=== PATIENT | female | born 1940 | race Caucasian/White ===

== ENCOUNTER 2022-12-31 15:49 | Outpatient (REF) | payer MEDICARE, SELFPAY ==
--- NOTE | ~2022-12-31 | XR_ITS ---
EXAMINATION: XR SHOULDER, LEFT CLINICAL INFORMATION: Left shoulder contusion. COMPARISON: None TECHNIQUE: AP external rotation, Grashey, scapular Y, and axillary views of the left shoulder. FINDINGS: Moderate calcification is seen overlying the rotator cuff distally subjacent to the lateral margin of the acromion. Moderate left acromioclavicular degenerative joint changes are seen. The left glenohumeral joint is unremarkable. There is no acute fracture or dislocation. The visualized left ribs are intact. The soft tissues are unremarkable. XR/XR shoulder LT min 2V IMPRESSION: 1. 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 Moderate left acromioclavicular degenerative joint changes. No acute fracture.
== END 2022-12-31 15:50 | disposition home or self-care (01) ==
LOC: HO.HMGCX 15:49
PROVIDERS: Visit Provider Internal Medicine
DX: S40.012A Contusion of left shoulder, initial encounter (principal); X58.XXXA Exposure to other specified factors, initial encounter; Y93.9 Activity, unspecified; Y92.9 Unspecified place or not applicable; Y99.9 Unspecified external cause status
CPT/HCPCS: 73030